=== PATIENT | male | born 1990 | race Asian ===

== ENCOUNTER 2025-02-04 12:23 | Inpatient (IN) | payer OTHER ==
[~2025-02-04] VITALS: Ht 167.6 cm; Wt 53.5 kg
[2025-02-04 15:55] VITALS: BP 100/63; PULSE 88; RESP 19; TEMP 98.2; O2SAT 97
[2025-02-04] MEDS ORDERED: FLUTICASONE PROPIONATE 50 MCG/SPRAY 16 GM NASAL SPRAY NASAL PRN (16:30)
[2025-02-04] MEDS ORDERED: ACETAMINOPHEN 325 MG TABLET PO PRN (16:30)
[2025-02-04] MEDS ORDERED: INFLUENZA VIRUS VACCINE TVS (6MO+) 2025-26/PF 45 MCG/0.5 ML SYRINGE IM. ONE (17:30)
[2025-02-04 20:00] VITALS: BP 101/58; PULSE 98; RESP 16; TEMP 98; O2SAT 98
[2025-02-04] MEDS: SENNOSIDES 8.6 MG TABLET PO SCH (21:00)
[2025-02-04] MEDS: DOCUSATE SODIUM 100 MG CAPSULE PO SCH (21:00)
[2025-02-04] MEDS: MELATONIN 5 MG TABLET PO PRN (22:16)
[2025-02-04] MEDS: ETHYL ALCOHOL 62% ANTISEPTIC NASAL SANITIZER 0.6 ML AMPUL NASAL SCH (22:18)
[2025-02-05 00:59] VITALS: O2SAT 98
[2025-02-05 07:38] LABS: PLATELET COUNT (AUTO) 434 K/uL (150-450); RED BLOOD CELL COUNT(AUTO) 3.08 MIL/uL (4.50-5.90); RED CELL DISTRIBUTION WIDTH 15.6 % (11.5-14.5); WHITE BLOOD COUNT (AUTO) 15.5 K/uL (4.5-11.0)
[2025-02-05 07:57] LABS: ASPARTATE AMINOTRANSFERASE 114 U/L (15-37); CALCIUM, TOTAL 8.1 mg/dL (8.8-10.5); CREATININE 0.16 mg/dL (0.60-1.30); GLOMERULAR FILTR. RATE CALC > 60 mL/min (>60); GLUCOSE,RANDOM 86 mg/dL (70-110); SODIUM SERUM 142 mmol/L (136-145); TOTAL PROTEIN, SERUM 6.8 g/dL (6.4-8.2); UREA NITROGEN, BLOOD 14 mg/dL (7-18)
[2025-02-05 08:05] VITALS: BP 106/63; PULSE 77; RESP 16; TEMP 97.9; O2SAT 100
[2025-02-05] MEDS: OMEPRAZOLE 20 MG CAPSULE PO SCH (08:27)
[2025-02-05] MEDS: CHOLECALCIFEROL (VIT D3) 400 UNITS [10 MCG] TABLET PO SCH (08:27)
[2025-02-05] MEDS: ENOXAPARIN SODIUM 40 MG/0.4 ML PF SYRINGE SQ SCH (08:28)
[2025-02-05 11:24] VITALS: O2SAT 100
[2025-02-05 19:59] VITALS: BP 115/69; PULSE 103; RESP 16; TEMP 97.5; O2SAT 97
[2025-02-05 23:50] VITALS: O2SAT 97
[2025-02-06 08:00] VITALS: BP 109/74; PULSE 75; RESP 18; TEMP 97.7; O2SAT 98
[2025-02-06] MEDS: DOCUSATE SODIUM 100 MG/10 ML LIQUID UDCUP PO SCH (09:32)
[2025-02-06] MEDS: FAMOTIDINE 20 MG TABLET PO SCH (17:10)
[2025-02-06 20:10] VITALS: BP 120/61; PULSE 95; RESP 18; TEMP 97.9; O2SAT 97
[2025-02-06 21:54] VITALS: O2SAT 97
[2025-02-07 07:49] LABS: PLATELET COUNT (AUTO) 409 K/uL (150-450); RED BLOOD CELL COUNT(AUTO) 3.20 MIL/uL (4.50-5.90); RED CELL DISTRIBUTION WIDTH 20.6 % (11.5-14.5); WHITE BLOOD COUNT (AUTO) 16.4 K/uL (4.5-11.0)
[2025-02-07 08:05] VITALS: BP 115/73; PULSE 79; RESP 20; TEMP 97.9; O2SAT 98
[2025-02-07 08:24] LABS: ASPARTATE AMINOTRANSFERASE 109 U/L (15-37); CALCIUM, TOTAL 8.4 mg/dL (8.8-10.5); CREATININE 0.22 mg/dL (0.60-1.30); GLOMERULAR FILTR. RATE CALC > 60 mL/min (>60); GLUCOSE,RANDOM 89 mg/dL (70-110); SODIUM SERUM 140 mmol/L (136-145); TOTAL PROTEIN, SERUM 7.0 g/dL (6.4-8.2); UREA NITROGEN, BLOOD 15 mg/dL (7-18)
[2025-02-07 08:28] LABS: CREATINE KINASE, TOTAL ONLY 1380 U/L (39-308)
[2025-02-07] MEDS: POTASSIUM CHLORIDE 20 MEQ ER TABLET PO ONE (12:43)
[2025-02-07 20:02] VITALS: BP 106/75; PULSE 104; RESP 19; TEMP 98.1; O2SAT 98
[2025-02-07] MEDS: DOCUSATE SODIUM 100 MG CAPSULE PO SCH (20:09)
[2025-02-07 21:00] VITALS: O2SAT 98
[2025-02-08 08:00] VITALS: BP 112/76; PULSE 80; RESP 19; TEMP 97.9; O2SAT 99
[2025-02-08 20:00] VITALS: BP 109/65; PULSE 89; RESP 19; TEMP 98.1; O2SAT 97
[2025-02-09 08:00] VITALS: BP 107/72; PULSE 86; RESP 19; TEMP 98.1; O2SAT 97
[2025-02-09 08:39] LABS: ASPARTATE AMINOTRANSFERASE 103 U/L (15-37); CALCIUM, TOTAL 8.5 mg/dL (8.8-10.5); CREATININE 0.23 mg/dL (0.60-1.30); GLOMERULAR FILTR. RATE CALC > 60 mL/min (>60); GLUCOSE,RANDOM 80 mg/dL (70-110); SODIUM SERUM 141 mmol/L (136-145); TOTAL PROTEIN, SERUM 7.3 g/dL (6.4-8.2); UREA NITROGEN, BLOOD 15 mg/dL (7-18)
[2025-02-09 08:41] LABS: CREATINE KINASE, TOTAL ONLY 1333 U/L (39-308)
[2025-02-09 20:00] VITALS: BP 102/63; PULSE 99; RESP 19; TEMP 97.8; O2SAT 99
[2025-02-10 08:00] VITALS: BP 116/69; PULSE 88; RESP 18; TEMP 98.1; O2SAT 98
[2025-02-10] MEDS: DOCUSATE SODIUM 100 MG/10 ML LIQUID UDCUP PO SCH (09:55)
[2025-02-10 20:20] VITALS: BP 104/55; PULSE 104; RESP 18; TEMP 97.3; O2SAT 98
[2025-02-10 21:26] VITALS: O2SAT 98
[2025-02-11 08:00] VITALS: BP 105/65; PULSE 80; RESP 16; TEMP 98.1; O2SAT 97
[2025-02-11 20:00] VITALS: BP 108/71; PULSE 112; RESP 19; TEMP 98; O2SAT 98
[2025-02-11 23:09] VITALS: O2SAT 98
[2025-02-12 08:00] VITALS: BP 111/73; PULSE 91; RESP 18; TEMP 98.1; O2SAT 98
[2025-02-12 20:00] VITALS: BP 103/73; PULSE 97; RESP 19; TEMP 98.1; O2SAT 98
[2025-02-13] MEDS ORDERED: OMEP-148 PO (05:21)
[2025-02-13] MEDS ORDERED: CHOL400T56 PO ×2 (05:21→10:57)
[2025-02-13] MEDS ORDERED: PRED-554 PO ×2 (05:21→10:57)
[2025-02-13 07:15] LABS: ASPARTATE AMINOTRANSFERASE 75 U/L (15-37); CALCIUM, TOTAL 8.1 mg/dL (8.8-10.5); CREATINE KINASE, TOTAL ONLY 918 U/L (39-308); CREATININE 0.26 mg/dL (0.60-1.30); GLOMERULAR FILTR. RATE CALC > 60 mL/min (>60); GLUCOSE,RANDOM 83 mg/dL (70-110); SODIUM SERUM 142 mmol/L (136-145); TOTAL PROTEIN, SERUM 6.5 g/dL (6.4-8.2); UREA NITROGEN, BLOOD 11 mg/dL (7-18)
[2025-02-13 08:00] VITALS: BP 114/76; PULSE 80; RESP 17; TEMP 98.4; O2SAT 99
[2025-02-13] MEDS ORDERED: SENN-374 PO (10:57)
[2025-02-13] MEDS ORDERED: FLUT16SP NASAL (10:57)
[2025-02-13] MEDS ORDERED: OMEP20CA12 PO (10:57)
== END 2025-02-13 12:40 | disposition home or self-care (01) | DRG 545 ==
LOC: 2WR 15:59
PROVIDERS: ADMIT Physical Medicine & Rehabilitation; ATTEND Physical Medicine & Rehabilitation
DX: G72.49 Other inflammatory and immune myopathies, not elsewhere classified (principal); G82.50 Quadriplegia, unspecified; E46 Unspecified protein-calorie malnutrition; F15.93 Other stimulant use, unspecified with withdrawal; Z68.1 Body mass index [BMI] 19.9 or less, adult; G70.89 Other specified myoneural disorders; Z74.09 Other reduced mobility; D64.9 Anemia, unspecified; M85.80 Other specified disorders of bone density and structure, unspecified site; R13.10 Dysphagia, unspecified; R49.0 Dysphonia; D72.829 Elevated white blood cell count, unspecified; R26.9 Unspecified abnormalities of gait and mobility; R47.1 Dysarthria and anarthria; M62.81 Muscle weakness (generalized); R74.8 Abnormal levels of other serum enzymes; R74.01 Elevation of levels of liver transaminase levels; R13.12 Dysphagia, oropharyngeal phase; K21.9 Gastro-esophageal reflux disease without esophagitis; Z79.899 Other long term (current) drug therapy; Z91.013 Allergy to seafood
CPT/HCPCS: 80053; 82550; 85025; 87081; 92507; 92526; 92610; 93970; 97110; 97112; 97116; 97163; 97167; 97530; 97535; 99366; J1650